=== PATIENT | female | born 1955 | race Caucasian/White ===

== ENCOUNTER 2022-05-30 18:38 | Emergency (ER) | payer MEDICARE, BC ==
[~2022-05-30] VITALS: Ht 167.6 cm; Wt 70.3 kg
[2022-05-30] MEDS ORDERED: LIPITOR10 MG (18:50)
[2022-05-30] MEDS ORDERED: LISINOPRIL20 MG PO (18:50)
[2022-05-30] MEDS ORDERED: HYDROCODON-ACE1 EA10 PO (20:14)
== END 2022-05-30 20:25 | disposition home or self-care (01) ==
LOC: ED 18:38
DX: S43.014A Anterior dislocation of right humerus, initial encounter (principal); I10 Essential (primary) hypertension; E78.00 Pure hypercholesterolemia, unspecified; Z79.899 Other long term (current) drug therapy; W19.XXXA Unspecified fall, initial encounter
CPT/HCPCS: 23650; 73030; 73060; 73090; 99283-25; A9270; J1170

== ENCOUNTER 2023-08-01 06:30 | Day surgery (SDC) | payer MEDICARE, BC ==
[2023-07-25 11:23] VITALS: BP 118/70
[~2023-08-01] VITALS: Ht 167.6 cm; Wt 79.5 kg
[~2023-08-01 06:30] MED LIST: ACETAMINOPHEN500 MG PO; BENADRYL25 MG PO; CALCIUM500 MG PO; CLARITIN10 MG PO; FISH OIL 1,001000 MG PO; HYDROCODON-ACE1 EA10 PO; IBUPROFEN600 MG PO; LIPITOR10 MG; LIPITOR10 MG PO; LISINOPRIL20 MG PO; MIDAZOLAM HCL 5 MG/5 ML VIAL IV PRN; MULTI COMPLETE1 EACH PO; VITAMIN D310 MC4 PO; fentaNYL citrate 100 MCG/2 ML VIAL IV PRN
[2023-08-01 06:57] VITALS: BP 133/71
[2023-08-01] MEDS ORDERED: IBLOOD GLUCOSE TEST STRIP 1 EA TEST VI PRN (07:00)
[2023-08-01] MEDS ORDERED: LACTATED RINGER'S 1,000 ML IV SCH (07:00)
[2023-08-01] MEDS ORDERED: LIDOCAINE HCL 1% 5 ML SDV INJ ONE (07:00)
[2023-08-01] MEDS ORDERED: VENTOLIN HFA18 GM PO (07:01)
[2023-08-01] MEDS ORDERED: LIDOCAINE HCL 2% 5 ML SDV ONE (08:18)
[2023-08-01] MEDS ORDERED: propofoL 200 MG/20 ML VIAL ONE (08:18)
--- NOTE | 2023-08-01 09:00 | NUR ---
08/01/23 0900 Salud Julian 0847-PATIENT ARRIVED TO PACU ON 2L NC RR EVEN. PATIENT LAYING LEFT LATERAL. REACTIVE TO VERBAL STIMULI DENIES PAIN OR NAUSEA. ORIENTED TO PACU. ABDOMEN SOFT. BP'S LOW 80'S IVF INFUSING. PER JASON BOOM STICK MAN GIVE REST OF IV FLUID. 0858-PATIENT SLEEPING BP 80/49 HR 62. DENIES PAIN OR NAUSEA. 96% 2L NC RR EVEN. PATIENT REPORTED DIZZYNESS BUT GOING AWAY. IVF INFUSING.
[2023-08-01 09:46] VITALS: BP 117/64
--- NOTE | 2023-08-01 13:54 | OR ---
[facility] [address], [place] [address] Signed DATE OF OPERATION: 08/01/2023 SURGEON: Flako Turcios MD PREOPERATIVE DIAGNOSIS: Personal history of colonic polyps in 2019 at the age of 63. POSTOPERATIVE DIAGNOSES: 1. Minimal to moderate internal hemorrhoids. 2. Internal anal skin tags x2. 3. Pandiverticulosis. 4. Tortuous sigmoid and left colon. 5. 5 mm polyp at 50 cm in the left colon and 3 mm polyp at 15 cm in rectosigmoid junction. PROCEDURE: Colonoscopy with hot biopsy. ESTIMATED BLOOD LOSS: None. INDICATIONS: Pool is a 68-year-old female, asked to see me for a followup colonoscopy. She lived most of her life up in [place], [place]. Her has and therefore she moved to [place], [place] to be close to her daughter. While in [place], [place], she underwent her initial screening colonoscopy in 2019 at the age of 63. This was done at [facility] in [place], [place]. She had three colonic polyps removed. She was told to follow up in three years. She has no lower GI complaints. There is no family history of colon cancer or polyps. Unfortunately, we are still trying to track down her previous records. In the office, I gave her a pamphlet on colonoscopy. We reviewed the nature of the test. There is risk including, but not limited to gas bloating, crampy abdominal pain, bleeding, perforation requiring surgery, and missed diagnosis. We also reviewed the written instructions for the bowel prep line by line. We also reviewed the need for monitored anesthesia care given her long history of smoking and her chronic cough as well as dyspnea on exertion. She understands an adult person has to take her home afterwards. She had expressed understanding and wished to proceed. DESCRIPTION OF PROCEDURE: Pool was taken into our endoscopy suite and placed in the left lateral decubitus Electronically Signed By: FLAKO TURCIOS MD 08/01/23 1354 PATIENT NAME: POOL DENT OPERATIVE REPORT DATE OF : 55 REPORT #: [id number] PHYSICIAN: FLAKO TURCIOS MD PCP: ADRIANNA BUCIO MD REPORT IS CONFIDENTIAL AND NOT TO BE RELEASED WITHOUT AUTHORIZATION [facility] [address] [place] [id number] Signed position. She was given monitored anesthesia care with propofol infusion per our nurse wader boot top assembler. A digital rectal exam was performed. She had good sphincter tone. There were no external hemorrhoids. No masses. The adult colonoscope was introduced and advanced all around into the cecum under direct visualization of the camera without difficulty. Her prep was quite excellent. We could easily see the appendiceal orifice and the ileocecal valve. We had used extra propofol and abdominal compression in order to get the scope up through the tortuous sigmoid and left colon. After that, the camera went fairly well. The scope was then slowly withdrawn. We saw diverticula in the right and left colon. They are moderate in size, moderate in number and scattered about. The above-mentioned polyps were removed with the help of hot biopsy forceps. Once in the rectum, the scope was retroflexed and she does have minimal to moderate internal hemorrhoids. She had two small internal anal skin tags. After this, the gas was suctioned out and the colonoscope removed. Pool tolerated the procedure quite well. RECOMMENDATIONS: I will see Pool back in my office in 7 to 14 days to review her results. I suspect she will be on the five year plan after this. Flako Turcios MD [facility] /[id number] cc: Dr. Adrianna Turcios MD Copies: FLAKO TURCIOS MD ~ Electronically Signed By: FLAKO TURCIOS MD 08/01/23 1354 PATIENT NAME: POOL DENT OPERATIVE REPORT DATE OF : 55 REPORT #: [id number] PHYSICIAN: FLAKO TURCIOS MD PCP: ADRIANNA BUCIO MD REPORT IS CONFIDENTIAL AND NOT TO BE RELEASED WITHOUT AUTHORIZATION
--- NOTE | 2023-08-05 11:21 | PATH ---
[facility] [address] [facility] [place], [place] [address] Signed SPECIMEN(S): A SIGMOID POLYP AT 45 CM SPECIMEN(S): B COLON POLYP AT 15 CM SPECIMEN SOURCE: A. SIGMOID POLYP AT 45 CM B. COLON POLYP AT 15 CM CLINICAL HISTORY: Colon polyps FINAL PATHOLOGIC DIAGNOSIS: A. Sigmoid polyp at 45 cm, biopsy: - Tubular adenoma. B. Colon polyp at 15 cm, biopsy: - Hyperplastic polyp. AMB MICROSCOPIC EXAMINATION: Histologic sections of all submitted blocks are examined by light microscopy. These findings, together with the gross examination, support the pathologic diagnosis. GROSS DESCRIPTION: A. The specimen, labeled and designated "Zaidi Lowe, sigmoid colon polyp at 45 cm," is received in formalin and consists of two hawkins soft tissue fragments, ranging from 0.2 cm. Entirely submitted in (A1). B. The specimen, labeled and designated "Zaidi Lowe, colon polyp at 15 cm," is received in formalin and consists of one hawkins soft tissue fragment, 0.1 cm. Entirely submitted in (B1). JS (under the direct supervision of a pathologist) The Gross Description was prepared using a voice recognition system. The report was reviewed for accuracy; however, sound-alike word errors, addition and/or deletions may occur. If there is any question about this report, please contact Client Services. ADDITIONAL NOTES: Immunohistochemical and/or in situ hybridization studies if performed in this case included appropriate positive controls that reacted as expected. This test was developed and its performance characteristics determined by [facility]. It has not been cleared or PATIENT NAME: POOL DENT PATHOLOGY DATE OF : 55 REPORT #: [id number] PHYSICIAN: ALIYAH MATHIAS PCP: DUKE BUCIO MD REPORT IS CONFIDENTIAL AND NOT TO BE RELEASED WITHOUT AUTHORIZATION [address], [place] [address] Signed approved by the U.S. Food and Drug Administration. The FDA has determined that such clearance or approval is not necessary. This test is used for clinical purposes. It should not be regarded as investigational or for research. [facility] is certified under the Clinical Laboratory Improvement Amendments of 1988 (CLIA) as qualified to perform high complexity clinical laboratory testing. PERFORMING LABORATORY: Technical component was performed by [facility], [address] [place] [id number] (CLIA# [id number]). Professional interpretation was performed by [facility] - [facility] [address] [place] [id number] Diagnostician: Emilie Martinez MD Pathologist Electronically Signed 08/05/2023 Copies: ~ PATIENT NAME: POOL DENT PATHOLOGY DATE OF : 55 REPORT #: [id number] PHYSICIAN: ALIYAH PATHOLOGY PCP: DUKE BUCIO MD REPORT IS CONFIDENTIAL AND NOT TO BE RELEASED WITHOUT AUTHORIZATION
== END 2023-08-01 10:00 | disposition home or self-care (01) ==
LOC: OPS 06:30 → DS 06:30 → OPS 08:05 → DS 08:15 → OPS 10:00
PROVIDERS: ATTEND Colon & Rectal Surgery
PROC: 0DBE8ZX Excision of Large Intestine, Via Natural or Artificial Opening Endoscopic, Diagnostic (ICD-10-PCS; principal; 2023-08-01 08:05)
DX: Z12.11 Encounter for screening for malignant neoplasm of colon (principal); D12.7 Benign neoplasm of rectosigmoid junction; K63.5 Polyp of colon; K57.30 Diverticulosis of large intestine without perforation or abscess without bleeding; Q43.8 Other specified congenital malformations of intestine; K64.8 Other hemorrhoids; Z86.010 Personal history of colon polyps; I10 Essential (primary) hypertension; E78.5 Hyperlipidemia, unspecified; F17.200 Nicotine dependence, unspecified, uncomplicated; Z79.82 Long term (current) use of aspirin; Z79.899 Other long term (current) drug therapy
CPT/HCPCS: 00811; 88305; J2001; J2704; J7121